=== PATIENT | female | born 1995 | race Two or more races ===

== ENCOUNTER 2023-02-13 18:23 | Emergency (ER) | payer MEDICAID, OTHER ==
[~2023-02-13] VITALS: Ht 162.6 cm; Wt 62.0 kg
[2023-02-13 19:07] VITALS: BP 127/61; PULSE 83; RESP 16; TEMP 98.3; O2SAT 97
[2023-02-13 19:09] LABS: Urine Bacteria FEW /hpf (None Seen); Urine Blood Negative /uL (Negative); Urine Clarity Clear (Clear); Urine Color Yellow (Yellow); Urine Protein, UAD Negative (Negative); Urine Specific Gravity 1.021 (1.001-1.035); Urine Urobilinogen Normal (Negative); Urine WBC 1 /hpf (0 - 5)
[2023-02-13] MEDS ORDERED: IBUP1TAB5 PO (21:07)
[2023-02-13] MEDS ORDERED: HYDR-4902 PO (21:07)
== END 2023-02-13 21:30 | disposition home or self-care (01) ==
LOC: ER 18:23
DX: S16.1XXA Strain of muscle, fascia and tendon at neck level, initial encounter (principal); S40.022A Contusion of left upper arm, initial encounter; V49.9XXA Car occupant (driver) (passenger) injured in unspecified traffic accident, initial encounter; Y93.89 Activity, other specified; Y92.410 Unspecified street and highway as the place of occurrence of the external cause; Y99.8 Other external cause status
CPT/HCPCS: 72125; 73060; 81001; 81025